=== PATIENT | male | born 1985 | race American Indian/Alaskan Native ===

== ENCOUNTER 2017-09-22 11:54 | Emergency (ER) | payer BC ==
--- NOTE | 2017-09-22 13:02 | ED ---
General Adult HPI - General Chief complaint: Neuro Symptoms/Deficit Stated complaint: Body tingles in legs Time Seen by Provider: 09/22/17 12:52 Source: patient, RN notes reviewed Mode of arrival: ambulatory Limitations: no limitations - History of Present Illness Initial comments: 32-year-old male presents with chief complaint of tingling in his bilateral upper and lower extremities. Patient's symptoms began at approximately 8 AM. They persisted until just prior to arrival. He has no complaints the time my evaluation. Patient states he's had these symptoms for many months to years. He does have a remote history of seizure disorder, last seizure was in 2004. He is currently taking carbamazepine. No change in dosing of this medication. Patient has been seizure free. States this does not feel like a seizure aura. Denies headache. Denies chest pain or difficulty breathing. Does report some palpitations. Denies abdominal pain. Denies nausea vomiting or diarrhea. Denies focal weakness. Patient has a feeding, he's been vegan for several years. He does supplement with vitamins and minerals. - Related Data Home Medications Medication Instructions Recorded Confirmed Multivitamin-Vegan 1 tab PO DAILY 09/22/17 09/22/17 carBAMazepine [TEGretol] 200 mg PO Q12H 09/22/17 09/22/17 Allergies Allergy/AdvReac Type Severity Reaction Status Date / Time No Known Allergies Allergy Verified 09/22/17 12:56 Review of Systems ROS Statement: Those systems with pertinent positive or pertinent negative responses have been documented in the HPI. ROS Other: All systems not noted in ROS Statement are negative. Past Medical History Past Medical History: Seizure Disorder Additional Past Medical History / Comment(s): last seizure in 2004 History of Any Multi-Drug Resistant Organisms: None Reported Past Surgical History: Hernia Repair, Orthopedic Surgery Past Psychological History: No Psychological Hx Reported Smoking Status: Former smoker Past Alcohol Use History: None Reported Past Drug Use History: Marijuana General Exam Limitations: no limitations General appearance: alert, in no apparent distress Head exam: Present: atraumatic, normocephalic Eye exam: Present: normal appearance, PERRL, EOMI. Absent: scleral icterus, conjunctival injection ENT exam: Present: normal exam Neck exam: Present: normal inspection, full ROM. Absent: tenderness, meningismus Respiratory exam: Present: normal lung sounds bilaterally. Absent: respiratory distress, wheezes Cardiovascular Exam: Present: regular rate, irregular rhythm GI/Abdominal exam: Present: soft. Absent: distended, tenderness Extremities exam: Present: normal inspection, full ROM, normal capillary refill. Absent: pedal edema Neurological exam: Present: alert, oriented X3, CN II-XII intact, normal gait. Absent: motor sensory deficit Psychiatric exam: Present: normal affect, normal mood Skin exam: Present: warm, dry, intact. Absent: cyanosis, diaphoretic Course Vital Signs 09/22/17 09/22/17 12:32 13:37 Temperature 98 F 97.8 F Pulse Rate 70 62 Respiratory 20 18 Rate Blood Pressure 145/63 127/71 O2 Sat by Pulse 99 100 Oximetry EKG Findings - EKG Comments: EKG Findings:: Normal sinus rhythm, ventricular rate 70, TX interval 160, QRS duration 84, QTC 382, no signs of ischemia or arrhythmia Medical Decision Making - Medical Decision Making 32-year-old male presenting with chief complaint of tingling. He's had this ongoing intermittently for months. Symptoms resolved at the time my evaluation. EKG is obtained, normal sinus rhythm. Laboratory studies reveal mild hyponatremia at 133. Patient has a vegan and does avoid salt. He is encouraged to increase his salt intake. I will extensive including calcium potassium and magnesium are within normal limits. Patient is given neurology follow-up for the management of his carbamazepine and seizure disorder. Return to emergency department with worsening symptoms. - Lab Data Result diagrams: 09/22/17 13:13 09/22/17 13:13 Lab Results 09/22/17 09/22/17 Range/Units 13:13 13:13 WBC 4.7 (3.8-10.6) k/uL RBC 5.35 (4.30-5.90) m/uL Hgb 16.4 (13.0-17.5) gm/dL Hct 47.1 (39.0-53.0) % MCV 88.0 (80.0-100.0) fL MCH 30.6 (25.0-35.0) pg MCHC 34.7 (31.0-37.0) g/dL RDW 12.9 (11.5-15.5) % Plt Count 207 (150-450) k/uL Neutrophils % 68 % Lymphocytes % 21 % Monocytes % 6 % Eosinophils % 2 % Basophils % 1 % Neutrophils # 3.2 (1.3-7.7) k/uL Lymphocytes # 1.0 (1.0-4.8) k/uL Monocytes # 0.3 (0-1.0) k/uL Eosinophils # 0.1 (0-0.7) k/uL Basophils # 0.0 (0-0.2) k/uL Sodium 133 L (137-145) mmol/L Potassium 4.2 (3.5-5.1) mmol/L Chloride 95 L (98-107) mmol/L Carbon Dioxide 29 (22-30) mmol/L Anion Gap 9 mmol/L BUN 9 (9-20) mg/dL Creatinine 0.70 (0.66-1.25) mg/dL Est GFR (MDRD) Af Amer >60 (>60 ml/min/1.73 sqM) Est GFR (MDRD) Non-Af >60 (>60 ml/min/1.73 sqM) Glucose 92 (74-99) mg/dL Calcium 9.3 (8.4-10.2) mg/dL Magnesium 1.9 (1.6-2.3) mg/dL Total Bilirubin 0.7 (0.2-1.3) mg/dL AST 33 (17-59) U/L ALT 49 (21-72) U/L Alkaline Phosphatase 67 (38-126) U/L Total Protein 7.2 (6.3-8.2) g/dL Albumin 4.8 (3.5-5.0) g/dL Disposition Clinical Impression: Hyponatremia, Paresthesia Disposition: HOME SELF-CARE Condition: Good Instructions: Paresthesia (ED) Referrals: None,Stated [Primary Care Provider] - 1-2 days Meli Almanza MD [STAFF PHYSICIAN] - 1-2 days Time of Disposition: 14:22
[2017-09-22 13:37] LABS: Basophils % (A) 1 %; CH 30.9; CHCM 35.2; Eosinophils # (A) 0.1 k/uL (0-0.7); Eosinophils % (A) 2 %; HCT 47.1 % (39.0-53.0); HDW 2.39; HGB 16.4 gm/dL (13.0-17.5); Luc # (Auto) 0.08; Luc % (Auto) 2; Lymphocytes % (A) 21 %; MCH 30.6 pg (25.0-35.0); MCHC 34.7 g/dL (31.0-37.0); Mean Platelet Volume 7.4; Monocytes # (A) 0.3 k/uL (0-1.0); Monocytes % (A) 6 %; Neutrophils # (A) 3.2 k/uL (1.3-7.7); Neutrophils % (A) 68 %; RBC 5.35 m/uL (4.30-5.90); RDW 12.9 % (11.5-15.5); WBC 4.7 k/uL (3.8-10.6); WBC (Perox) 4.78
[2017-09-22 13:41] VITALS: RESP 18
[2017-09-22 13:49] LABS: ALT 49 U/L (21-72); AST 33 U/L (17-59); Alkaline Phosphatase 67 U/L (38-126); Anion Gap 9 mmol/L; Blood Urea Nitrogen 9 mg/dL (9-20); Calcium 9.3 mg/dL (8.4-10.2); Carbon Dioxide 29 mmol/L (22-30); Chloride 95 mmol/L (98-107); Glucose 92 mg/dL (74-99); Magnesium 1.9 mg/dL (1.6-2.3); Non-African American GFR(MDRD) >60 (>60 ml/min/1.73 sqM); Sodium 133 mmol/L (137-145); Total Bilirubin 0.7 mg/dL (0.2-1.3); Total Protein 7.2 g/dL (6.3-8.2)
[2017-09-22 13:53] LABS: Potassium 4.2 mmol/L (3.5-5.1)
[2017-09-22 14:44] VITALS: BP 133/75; PULSE 84; TEMP 98.3
== END 2017-09-22 14:44 | disposition home or self-care (01) ==
LOC: EC 11:54
DX: E87.1 Hypo-osmolality and hyponatremia (principal); R20.2 Paresthesia of skin; G40.909 Epilepsy, unspecified, not intractable, without status epilepticus; Z87.891 Personal history of nicotine dependence; Z79.899 Other long term (current) drug therapy
CPT/HCPCS: 36415; 80053; 83735; 85025; 93005; 99284

== ENCOUNTER 2018-11-18 18:27 | Emergency (ER) | payer BC, OTHER ==
[2018-11-18] MEDS ORDERED: SODIUM CHLORIDE 0.9% 1,000 ML IV STA (18:40)
--- NOTE | 2018-11-18 18:44 | ED ---
Seizure HPI - General Chief Complaint: Seizure Stated Complaint: Seizure Time Seen by Provider: 11/18/18 18:31 Source: patient, EMS, RN notes reviewed, old records reviewed Mode of arrival: EMS Limitations: no limitations - History of Present Illness Initial Comments: Patient is a 33-year-old male presents emergency department today with chief complaint of seizure activity. Patient believes he had a seizure last night because he woke up with a laceration on his tongue. In bodyaches. Patient states that he was in his living room watching TV with his roommates and proceeded to have another seizure. It was witnessed by his roommates. They called EMS. Seizure lasted roughly 2-5 minutes. Patient is unsure and no family available for history. Patient states that yesterday he was feeling generally ill with concerns for viral-like syndrome with bodyaches. Patient has had no abdominal pain. No nausea or vomiting. He denies any headache. He denies any extremity injuries. He does complain of pain over his tongue from where it was a bit. Patient states that he has had a history of seizure disorder and was previously on Tegretol. He's been off of Tegretol since December of last year. He does not know his neurologist that he is followed up with. He has been seizure free for over the past year. - Related Data Home Medications Medication Instructions Recorded Confirmed Multivitamins, Thera [Multivitamin 1 tab PO DAILY 11/18/18 11/18/18 (formulary)] Vitamin B Complex 1 cap PO DAILY 11/18/18 11/18/18 Previous Rx's Medication Instructions Recorded carBAMazepine 200 mg PO BID #20 tablet 11/18/18 Allergies Allergy/AdvReac Type Severity Reaction Status Date / Time No Known Allergies Allergy Verified 11/18/18 19:21 Review of Systems ROS Statement: Those systems with pertinent positive or pertinent negative responses have been documented in the HPI. ROS Other: All systems not noted in ROS Statement are negative. Past Medical History Past Medical History: Seizure Disorder Additional Past Medical History / Comment(s): last seizure in 2004 History of Any Multi-Drug Resistant Organisms: None Reported Past Surgical History: Hernia Repair, Orthopedic Surgery Past Psychological History: No Psychological Hx Reported Smoking Status: Former smoker Past Alcohol Use History: None Reported Past Drug Use History: Marijuana General Exam - General Exam Comments Initial Comments: 33-year-old male. Alert and oriented 3. Patient appears in no acute distress. Limitations: no limitations General appearance: alert, in no apparent distress Head exam: Present: atraumatic, normocephalic, normal inspection Eye exam: Present: normal appearance, PERRL, EOMI. Absent: scleral icterus, conjunctival injection, periorbital swelling ENT exam: Present: normal exam, mucous membranes moist, other (2cm laceration over underside of tongue. ) Neck exam: Present: normal inspection. Absent: tenderness, meningismus, lymphadenopathy Respiratory exam: Present: normal lung sounds bilaterally. Absent: respiratory distress, wheezes, rales, rhonchi, stridor Cardiovascular Exam: Present: regular rate, normal rhythm, normal heart sounds. Absent: systolic murmur, diastolic murmur, rubs, gallop, clicks GI/Abdominal exam: Present: soft Back exam: Present: normal inspection Neurological exam: Present: alert, oriented X3, CN II-XII intact Psychiatric exam: Present: normal affect, normal mood Skin exam: Present: warm, dry, intact, normal color. Absent: rash Course Vital Signs 11/18/18 11/18/18 18:34 19:58 Temperature 97.8 F 98.0 F Pulse Rate 112 H 88 Respiratory 20 18 Rate Blood Pressure 141/78 127/78 O2 Sat by Pulse 98 99 Oximetry Medical Decision Making - Medical Decision Making 33-year-old male history of seizure disorder. He has been off seizure medications for the past year. He was present, chest pain. He had a seizure last night which he bit his tongue and then a second seizure today. He states he otherwise feels well this time. He arrives not postictal. Alert and oriented. No neurological deficits. No complaints of pain. He does have a laceration of her tongue. This is superficial and does not need to be closed with sutures. Patient was started on IV fluids labwork obtained. EKG was reviewed and normal. Lab work was otherwise unremarkable. I discussed at this time Patient can either be transferred for neurological evaluation or he can start him on medications that he follows up outpatient with his primary care provider outpatient neurologist. Patient prefers to follow palpation only. I did discuss strict return parameters. We'll restart the Patient on Tegretol. Patient has been advised to avoid driving for the next is essentially seizure free. His aware of the [place] law with seizures in regards to returning to drive. The Patient understands the throat. Patient agrees to treatment plan and will comply. - Lab Data Result diagrams: 11/18/18 19:00 11/18/18 19:00 Lab Results 11/18/18 11/18/18 11/18/18 Range/Units 19:00 19:00 19:25 WBC 8.4 (3.8-10.6) k/uL RBC 4.86 (4.30-5.90) m/uL Hgb 14.7 (13.0-17.5) gm/dL Hct 43.7 (39.0-53.0) % MCV 89.9 (80.0-100.0) fL MCH 30.3 (25.0-35.0) pg MCHC 33.7 (31.0-37.0) g/dL RDW 11.9 (11.5-15.5) % Plt Count 190 (150-450) k/uL Neutrophils % 82 % Lymphocytes % 10 % Monocytes % 5 % Eosinophils % 1 % Basophils % 0 % Neutrophils # 6.9 (1.3-7.7) k/uL Lymphocytes # 0.9 L (1.0-4.8) k/uL Monocytes # 0.4 (0-1.0) k/uL Eosinophils # 0.1 (0-0.7) k/uL Basophils # 0.0 (0-0.2) k/uL Sodium 139 (137-145) mmol/L Potassium 4.0 (3.5-5.1) mmol/L Chloride 107 (98-107) mmol/L Carbon Dioxide 26 (22-30) mmol/L Anion Gap 6 mmol/L BUN 12 (9-20) mg/dL Creatinine 0.71 (0.66-1.25) mg/dL Est GFR (CKD-EPI)AfAm >90 (>60 ml/min/1.73 sqM) Est GFR (CKD-EPI)NonAf >90 (>60 ml/min/1.73 sqM) Glucose 95 (74-99) mg/dL Calcium 8.9 (8.4-10.2) mg/dL Total Bilirubin 1.0 (0.2-1.3) mg/dL AST 34 (17-59) U/L ALT 30 (21-72) U/L Alkaline Phosphatase 59 (38-126) U/L Total Protein 6.4 (6.3-8.2) g/dL Albumin 4.1 (3.5-5.0) g/dL Urine Color Yellow Urine Appearance Clear (Clear) Urine pH 5.5 (5.0-8.0) Ur Specific [place] 1.013 (1.001-1.035) Urine Protein 1+ H (Negative) Urine Glucose (UA) Negative (Negative) Urine Ketones Trace H (Negative) Urine Blood Negative (Negative) Urine Nitrite Negative (Negative) Urine Bilirubin Negative (Negative) Urine Urobilinogen <2.0 (<2.0) mg/dL Ur Leukocyte Esterase Negative (Negative) Urine RBC 1 (0-5) /hpf Urine WBC 3 (0-5) /hpf Urine Bacteria Rare H (None) /hpf Hyaline Casts 8 H (0-2) /lpf Urine Mucus Occasional H (None) /hpf Urine Opiates Screen Not Detected (NotDetected) Ur Oxycodone Screen Not Detected (NotDetected) Urine Methadone Screen Not Detected (NotDetected) Ur Propoxyphene Screen Not Detected (NotDetected) Ur Barbiturates Screen Not Detected (NotDetected) Carbamazepine <3.0 ug/mL U Tricyclic Antidepress Not Detected (NotDetected) Ur Phencyclidine Scrn Not Detected (NotDetected) Ur Amphetamines Screen Not Detected (NotDetected) U Methamphetamines Scrn Not Detected (NotDetected) U Benzodiazepines Scrn Not Detected (NotDetected) Urine Cocaine Screen Detected H (NotDetected) U Marijuana (THC) Screen Detected H (NotDetected) 11/18/18 18:47 EKG shows sinus tachycardia, otherwise normal EKG. Ventricular rate of 108 bpm. Patient was 140 ms. QRS duration is 86 ms. QT QTc is 328/439 ms. No evidence of ST elevation or T-wave inversion. No evidence of atrial ventricular arrhythmias. Disposition Clinical Impression: Seizure Disposition: HOME SELF-CARE Condition: Good Instructions: Recurrent Seizures in Adults (ED) Additional Instructions: Follow-up with [facility] physician and neurology. Patient to return to emergency department if any alarming signs or symptoms occur. Start the medications. Patient is to avoid driving for the next 6 months until seizure free. Prescriptions: carBAMazepine 200 mg PO BID #20 tablet Is patient prescribed a controlled substance at d/c from ED?: No Referrals: None,Stated [Primary Care Provider] - 1-2 days Meli Almanza MD [Medical Doctor] - 1-2 days Criselda Bergeron MD [STAFF PHYSICIAN] - 1-2 days Time of Disposition: 20:21
[2018-11-18] MEDS ORDERED: SODIUM CHLORIDE 0.9% 1,000 ML IV SCH (18:45)
[2018-11-18 19:30] LABS: ALT 30 U/L (21-72); AST 34 U/L (17-59); Albumin 4.1 g/dL (3.5-5.0); Alkaline Phosphatase 59 U/L (38-126); Anion Gap 6 mmol/L; Blood Urea Nitrogen 12 mg/dL (9-20); Calcium 8.9 mg/dL (8.4-10.2); Carbamazepine (Tegretol) <3.0 ug/mL; Carbon Dioxide 26 mmol/L (22-30); Chloride 107 mmol/L (98-107); Glucose 95 mg/dL (74-99); Sodium 139 mmol/L (137-145); Total Protein 6.4 g/dL (6.3-8.2)
[2018-11-18 19:42] LABS: Basophils % (A) 0 %; Eosinophils # (A) 0.1 k/uL (0-0.7); Eosinophils % (A) 1 %; HCT 43.7 % (39.0-53.0); HGB 14.7 gm/dL (13.0-17.5); Lymphocytes # (A) 0.9 k/uL (1.0-4.8); Lymphocytes % (A) 10 %; MCH 30.3 pg (25.0-35.0); MCHC 33.7 g/dL (31.0-37.0); MCV 89.9 fL (80.0-100.0); Mean Platelet Volume 6.6; Monocytes # (A) 0.4 k/uL (0-1.0); Monocytes % (A) 5 %; Neutrophils # (A) 6.9 k/uL (1.3-7.7); Neutrophils % (A) 82 %; Platelet Count 190 k/uL (150-450); RBC 4.86 m/uL (4.30-5.90); RDW 11.9 % (11.5-15.5); WBC 8.4 k/uL (3.8-10.6)
[2018-11-18 19:54] LABS: Appearance,Urine Clear (Clear); Bacteria,Urine Rare /hpf; Bilirubin,Urine Negative (Negative); Blood,Urine Negative (Negative); Color,Urine Yellow; Glucose,Urine (UA) Negative (Negative); Hyaline Casts,Urine 8 /lpf (0-2); Ketones,Urine Trace (Negative); Leukocyte Esterase,Urine Negative (Negative); Mucus,Urine Occasional /hpf; Nitrite,Urine Negative (Negative); PH, Urine 5.5 (5.0-8.0); Protein,Urine 1+ (Negative); RBC,Urine 1 /hpf (0-5); Specific Gravity,Urine 1.013 (1.001-1.035); Urobilinogen,Urine <2.0 mg/dL (<2.0); WBC,Urine 3 /hpf (0-5)
[2018-11-18 20:04] LABS: Amphetamine Screen,Urine Not Detected (NotDetected); Barbiturate Screen,Urine Not Detected (NotDetected); Benzodiazepines Screen,Urine Not Detected (NotDetected); Cocaine Screen,Urine Detected (NotDetected); Methadone Screen, Urine Not Detected (NotDetected); Opiate Screen,Urine Not Detected (NotDetected); Oxycodone Screen, Urine Not Detected (NotDetected); Phencyclidine Screen,Urine Not Detected (NotDetected); Tricyclic Antidepressant,Urine Not Detected (NotDetected); Urn Cannabinoid Scrn Detected (NotDetected)
[2018-11-18 20:36] VITALS: BP 122/75; PULSE 86; RESP 17; TEMP 97.9
== END 2018-11-18 20:28 | disposition home or self-care (01) ==
LOC: EC 18:27
DX: S01.512A Laceration without foreign body of oral cavity, initial encounter (principal); G40.909 Epilepsy, unspecified, not intractable, without status epilepticus; R07.9 Chest pain, unspecified; Z87.891 Personal history of nicotine dependence; Z79.899 Other long term (current) drug therapy
CPT/HCPCS: 36415; 80053; 80156; 80306; 81001; 85025; 93005; 96360; 99285